=== PATIENT | female | born 1980 | race Hispanic/Latino ===

== ENCOUNTER → 2021-04-12 | Day surgery (SDC) | payer OTHER ==
[~2021-04-12] MED LIST: ACETAMINOPHEN 1000 MG/100 ML 100 ML IV ONE; BUPIVACAINE HCL 0.5% INJ 30 ML VIAL INJ ONE; FENTANYL CITRATE/PF 100MCG/2 ML INJ ONE; KETOROLAC TROMETHAMINE 30 MG/ML VIAL ONE; MEPERIDINE HCL INJ 25 MG/ML VIAL ONE; SODIUM CHLORIDE 0.9% 50ML 50 ML ONE; TYLENO; TYLENOL #3 PO
[2021-04-12 15:10] VITALS: BP 146/85
== END | disposition home or self-care (01) ==
LOC: OR 10:21
PROVIDERS: ATTEND Specialist
DX: S82.852A Displaced trimalleolar fracture of left lower leg, initial encounter for closed fracture (principal); W17.89XA Other fall from one level to another, initial encounter; Y93.51 Activity, roller skating (inline) and skateboarding; Y99.8 Other external cause status; Z01.812 Encounter for preprocedural laboratory examination; Z20.822 Contact with and (suspected) exposure to COVID-19
CPT/HCPCS: 27822; 76000; 81025; C1713 ×6; J0131; J0690; J1885; J2175; J3010; U0002